=== PATIENT | female | born 1960 | race Caucasian/White ===

== ENCOUNTER 2024-12-22 11:35 | Outpatient (CLI) | payer SELFPAY | END 2024-12-22 23:59 | disposition home or self-care (01) | LOC: VAS 11:35 | PROVIDERS: ATTEND Radiology Diagnostic Radiology | DX: Z13.9 Encounter for screening, unspecified (principal) ==

== ENCOUNTER 2024-12-22 11:48 | Outpatient (CLI) | payer OTHER | END 2024-12-22 23:59 | disposition home or self-care (01) | LOC: RAD 11:48 | PROVIDERS: ATTEND Internal Medicine | DX: I10 Essential (primary) hypertension (principal); M81.0 Age-related osteoporosis without current pathological fracture | CPT/HCPCS: 71046 ==